=== PATIENT | male | born 1960 | race Caucasian/White ===

== ENCOUNTER 2017-02-14 11:54 | Day surgery (SDC) | payer OTHER ==
[~2017-02-14] VITALS: Ht 172.7 cm; Wt 85.9 kg
[2017-02-14] MEDS ORDERED: PRINIVIL40 MG PO (12:12)
[2017-02-14] MEDS ORDERED: FOLIC ACID 11 MG/TA1 PO (12:13)
[2017-02-14] MEDS ORDERED: PRILOTC PO (12:13)
[2017-02-14] MEDS ORDERED: ZOCOR 20MG20 MG PO (12:14)
[2017-02-14] MEDS ORDERED: METHOTREXA2.5 MG/TAB PO (12:14)
[2017-02-14] MEDS ORDERED: CELEBREX 1100 MG/CAP PO (12:15)
[2017-02-14 12:25] VITALS: BP 118/87; PULSE 77; TEMP 97.9
[2017-02-14 13:25] VITALS: BP 119/94; PULSE 73; TEMP 98.2
[2017-02-14 13:40] VITALS: BP 116/75; PULSE 72
[2017-02-14 13:55] VITALS: BP 105/70; PULSE 66
[2017-02-14 17:18] VITALS: BP 117/84; PULSE 75
== END 2017-02-14 14:20 | disposition home or self-care (01) ==
LOC: SDCO 11:54
DX: K29.30 Chronic superficial gastritis without bleeding (principal); K21.9 Gastro-esophageal reflux disease without esophagitis; Z68.29 Body mass index [BMI] 29.0-29.9, adult
CPT/HCPCS: OP; J2250; J3010; J7030

== ENCOUNTER → 2021-01-26 | Outpatient (CLI) | payer OTHER ==
[~2021-01-26] MED LIST: CELEBREX 1100 MG/CAP PO; FOLIC ACID 11 MG/TA1 PO; METHOTREXA2.5 MG/TAB PO; PRILOTC PO; PRINIVIL40 MG PO; ZOCOR 20MG20 MG PO
== END ==
LOC: MHCPAIN 13:38
DX: M47.817 Spondylosis without myelopathy or radiculopathy, lumbosacral region (principal); M54.50 Low back pain, unspecified; M53.3 Sacrococcygeal disorders, not elsewhere classified
CPT/HCPCS: G0463

== ENCOUNTER → 2021-03-24 | Outpatient (CLI) | payer OTHER | LOC: MHCPAIN 12:29 | DX: M47.817 Spondylosis without myelopathy or radiculopathy, lumbosacral region (principal); M54.50 Low back pain, unspecified; M53.3 Sacrococcygeal disorders, not elsewhere classified; M51.36 Other intervertebral disc degeneration, lumbar region | CPT/HCPCS: G0463 ==

== ENCOUNTER → 2021-04-14 | Outpatient (CLI) | payer OTHER | LOC: MHCPAIN 02-17 13:19 | DX: M47.817 Spondylosis without myelopathy or radiculopathy, lumbosacral region (principal); M53.3 Sacrococcygeal disorders, not elsewhere classified; M54.50 Low back pain, unspecified | CPT/HCPCS: G0463 ==

== ENCOUNTER → 2021-05-26 | Outpatient (CLI) | payer OTHER | LOC: MHCPAIN 07:47 | DX: M47.817 Spondylosis without myelopathy or radiculopathy, lumbosacral region (principal); M54.50 Low back pain, unspecified; M53.3 Sacrococcygeal disorders, not elsewhere classified | CPT/HCPCS: G0463; J1100; J2250; J3010 ==

== ENCOUNTER → 2021-08-02 | Outpatient (CLI) | payer OTHER | LOC: MHCPAIN 13:19 | DX: M53.3 Sacrococcygeal disorders, not elsewhere classified (principal); M47.897 Other spondylosis, lumbosacral region; M54.50 Low back pain, unspecified; I10 Essential (primary) hypertension | CPT/HCPCS: G0463 ==

== ENCOUNTER → 2021-08-11 | Outpatient (CLI) | payer OTHER | LOC: MHCPAIN 12:22 | DX: M47.817 Spondylosis without myelopathy or radiculopathy, lumbosacral region (principal); M53.3 Sacrococcygeal disorders, not elsewhere classified | CPT/HCPCS: G0260; J1040; Q9967 ==

== ENCOUNTER → 2021-09-12 | Outpatient (CLI) | payer OTHER | LOC: MHCPAIN 11:03 | DX: M54.50 Low back pain, unspecified (principal); M53.3 Sacrococcygeal disorders, not elsewhere classified; G89.29 Other chronic pain | CPT/HCPCS: G0463 ==